=== PATIENT | male | born 1985 | race Caucasian/White ===

== ENCOUNTER 2018-07-23 17:59 | Inpatient (IN) | payer OTHER ==
[~2018-07-23] VITALS: Ht 167.6 cm; Wt 51.6 kg
[2018-07-23] MEDS ORDERED: LORazepam 2 MG/ML, 1ML IVPush ONE (18:30)
[2018-07-23] MEDS ORDERED: SODIUM CHLORIDE FLUSH 10ML SYR IVF ONE (18:30)
[2018-07-23] MEDS ORDERED: SODIUM CHLORIDE 0.9% 1,000ML IVBOLUS ONE (18:30)
--- NOTE | 2018-07-23 19:04 | NUR ---
PATIENT PRESENTS TO ED TODAY FOR ABD PAIN RADIATING TO BACK, DIFFICULTY BREATHING, AND LEFT ARM NUMBNESS STARTING THIS AM. LABS DRAWN, IV STARTED, AWAITING RESULTS. FRIEND/FAMILY AT BEDSIDE, CALL LIGHT WITHIN REACH. NAD NOTED. NO HX.
[2018-07-23 19:12] LABS: ALANINE AMINOTRANSFERASE 79 U/L (12-78); ALBUMIN 4.5 g/dL (3.4-5.0); ANION GAP 12 mmol/L (5-15); CALCIUM 9.9 mg/dL (8.5-10.1); CHLORIDE 103 mmol/L (98-107); CREATININE 1.01 mg/dL (0.7-1.3)
--- NOTE | 2018-07-23 19:13 | NUR ---
VS UPDATED IN CHART, HR 110'S-130'S. MENTAL HEALTH TECHNICIAN ON PATIENT, PATIENT DENIES CP AT THIS TIME.
[2018-07-23 19:15] LABS: ALKALINE PHOSPHATASE 105 U/L (45-117); BASOPHILS # (AUTO) 0.02 x10^3/uL (0-0.1); BASOPHILS % (AUTO) 0 % (0-1); BILIRUBIN,TOTAL 0.7 mg/dL (0.2-1.0); EOSINOPHILS % (AUTO) 0 % (1-7); LYMPHOCYTES # (AUTO) 1.78 x10^3/uL (1-3.4); LYMPHOCYTES % (AUTO) 14 % (22-44); MD NO; MEAN CORPUSCULAR HEMOGLOBIN 33.9 pg (27.5-34.5); MEAN CORPUSCULAR HGB CONC 34.2 g/dL (33.2-36.2); MEAN CORPUSCULAR VOLUME 99.3 fL (81-97); MEAN PLATELET VOLUME 7.9 fL (7.4-10.4); MONOCYTES # (AUTO) 0.58 x10^3/uL (0.2-0.8); MONOCYTES % (AUTO) 5 % (2-9); NEUTROPHILS # (AUTO) 10.59 x10^3/uL (1.8-6.8); NEUTROPHILS % (AUTO) 82 % (42-75); PLATELET COUNT 358 x10^3/uL (130-400); RED BLOOD COUNT 5.61 x10^6/uL (4.38-5.82); TOTAL PROTEIN 8.8 g/dL (6.4-8.2)
[2018-07-23] MEDS ORDERED: LORazepam 2 MG/ML, 1ML ONE (19:16)
--- NOTE | 2018-07-23 19:23 | NUR ---
PATIENT SITTING IN GURNEY, TO BE ADMITTED, FAMILY/PATIENT UPDATED ON POC. NO ADDITIONAL NEEDS AT THIS TIME, NAD NOTED. AWAITING ADMIT ORDER.
--- NOTE | 2018-07-23 20:08 | NUR ---
NEW ORDERS, PATIENT TO US AT THIS TIME VIA LEE CHRISTENSEN. PATIENT REPORTS PAIN, AWARE. Addendum: 07/23/18 at 2009 by SOHAN AWAITING FURTHER ORDERS.
[2018-07-23] MEDS ORDERED: ONDANSETRON ODT 4 MG PO PRN (20:30)
[2018-07-23] MEDS ORDERED: PROMETHAZINE 25 MG/ML, 1ML IM PRN (20:30)
[2018-07-23] MEDS ORDERED: HYDROmorphone 2 MG/ML, 1ML IVPush PRN (20:30)
[2018-07-23] MEDS ORDERED: BISACODYL 10 MG SUPP PR PRN (20:30)
[2018-07-23] MEDS ORDERED: POLYETHYLENE GLYCOL 17 GM PACKET PO PRN (20:30)
[2018-07-23] MEDS ORDERED: SODIUM CHLORIDE FLUSH 10ML SYR IVF PRN (20:30)
[2018-07-23] MEDS ORDERED: DOCUSATE 100 MG CAPSULE PO PRN (20:30)
[2018-07-23] MEDS ORDERED: HYDROmorphone 2 MG/ML, 1ML ONE (20:41)
--- NOTE | 2018-07-23 20:42 | NUR ---
[facility] AT BEDSIDE.
--- NOTE | 2018-07-23 20:49 | NUR ---
PAIN MEDICATIONS ADMINISTERED PER MD ORDER, AWAITING REPORT TO RN UPSTAIRS. PATIENT SITTING IN BRIDGETTE CHRISTENSEN. VS UPDATED IN CHART.
--- NOTE | 2018-07-23 20:54 | NUR ---
REPORT TO JUANCHO MCDANIEL.
--- NOTE | 2018-07-23 20:57 | NUR ---
REPORT TO JUANCHO BILL.
[2018-07-23] MEDS ORDERED: LORazepam 0.5MG TABLET PO PRN (21:00)
[2018-07-23] MEDS ORDERED: LORazepam 1MG TABLET PO PRN ×4 (21:00)
[2018-07-23] MEDS ORDERED: LORazepam 2 MG/ML, 1ML IV PRN ×5 (21:00)
[2018-07-23 21:15] LABS: FREE T4 (FREE THYROXINE) 1.16 ng/dL (0.76-1.46); THYROID STIMULATING HORMONE 3.79 mIU/L (0.358-3.740)
[2018-07-23 21:20] VITALS: BP 169/99
[2018-07-23 21:20] LABS: HEMOGLOBIN A1C 5.5 % (4.2-6.3)
[2018-07-23] MEDS: morphine SULFATE 10 MG/ML, 1ML IVPush PRN ×2 (23:20→23:39)
[2018-07-23] MEDS: LACTATED RINGERS 1,000 ML IV SCH (23:28)
[2018-07-23] MEDS: NICOTINE 7 MG/24 HR PATCH.TD24 TD SCH (23:28)
[2018-07-23] MEDS: HEPARIN 5,000 UNITS/ML, 1ML SQ SCH (23:29)
[2018-07-24] VITALS (8 sets, daily range): BP systolic 147–174; BP diastolic 87–111
[2018-07-24] MEDS: morphine SULFATE 10 MG/ML, 1ML IVPush PRN ×5 (02:43→21:42)
[2018-07-24] MEDS: hydrALAzine 20 MG/ML, 1ML IVPush PRN ×2 (03:25→08:54)
[2018-07-24] MEDS: LACTATED RINGERS 1,000 ML IV SCH ×4 (05:17→21:43)
[2018-07-24 05:43] LABS: ALANINE AMINOTRANSFERASE 51 U/L (12-78); ALBUMIN 3.5 g/dL (3.4-5.0); ANION GAP 9 mmol/L (5-15); CALCIUM 8.5 mg/dL (8.5-10.1); CHLORIDE 106 mmol/L (98-107); CHOLESTEROL, TOTAL 159 mg/dL (140-239); CREATININE 0.65 mg/dL (0.7-1.3)
[2018-07-24 05:47] LABS: BASOPHILS # (AUTO) 0.04 x10^3/uL (0-0.1); BASOPHILS % (AUTO) 0 % (0-1); EOSINOPHILS % (AUTO) 0 % (1-7); LYMPHOCYTES # (AUTO) 1.21 x10^3/uL (1-3.4); LYMPHOCYTES % (AUTO) 13 % (22-44); MD NO; MEAN CORPUSCULAR VOLUME 99.9 fL (81-97); MEAN PLATELET VOLUME 7.7 fL (7.4-10.4); MONOCYTES # (AUTO) 0.65 x10^3/uL (0.2-0.8); MONOCYTES % (AUTO) 7 % (2-9); NEUTROPHILS # (AUTO) 7.72 x10^3/uL (1.8-6.8); NEUTROPHILS % (AUTO) 80 % (42-75); PLATELET COUNT 276 x10^3/uL (130-400); RED BLOOD COUNT 5.08 x10^6/uL (4.38-5.82); RED CELL DISTRIBUTION WIDTH 12.2 % (9.4-14.8)
[2018-07-24 05:57] LABS: ALKALINE PHOSPHATASE 86 U/L (45-117); BILIRUBIN,TOTAL 1.1 mg/dL (0.2-1.0); HDL CHOL % 50 % (26-37); HDL CHOLESTEROL (DIRECT) 80 mg/dL (40-60); LDL CHOLESTEROL,CALCULATED 35 mg/dL (54-169); LDL/HDL RATIO 0.4 (0.5-3.0); TOTAL PROTEIN 6.9 g/dL (6.4-8.2); TRIGLYCERIDES 218 mg/dL (50-200); VLDL CHOLESTEROL 44 mg/dL (0-25)
[2018-07-24] MEDS: OXYcodone IR 5MG TABLET PO PRN ×2 (08:55→16:12)
[2018-07-24] MEDS: ONDANSETRON 2MG/ML, 2ML IVPush PRN ×2 (08:55→16:11)
[2018-07-24] MEDS: HEPARIN 5,000 UNITS/ML, 1ML SQ SCH ×3 (09:10→23:45)
[2018-07-24] MEDS: NICOTINE 7 MG/24 HR PATCH.TD24 TD SCH (23:30)
[2018-07-25 02:38] VITALS: BP 147/90
[2018-07-25] MEDS: morphine SULFATE 10 MG/ML, 1ML IVPush PRN ×2 (02:50→07:59)
[2018-07-25] MEDS: LACTATED RINGERS 1,000 ML IV SCH (02:51)
[2018-07-25 06:00] LABS: CHLORIDE 100 mmol/L (98-107)
[2018-07-25 06:17] LABS: ALANINE AMINOTRANSFERASE 32 U/L (12-78); ALBUMIN 2.8 g/dL (3.4-5.0); ALKALINE PHOSPHATASE 77 U/L (45-117); ANION GAP 11 mmol/L (5-15); BILIRUBIN,TOTAL 1.8 mg/dL (0.2-1.0); CALCIUM 8.3 mg/dL (8.5-10.1); CREATININE 0.56 mg/dL (0.7-1.3); TOTAL PROTEIN 6.4 g/dL (6.4-8.2)
[2018-07-25 07:13] VITALS: BP 145/87
[2018-07-25] MEDS: ONDANSETRON 2MG/ML, 2ML IVPush PRN (07:59)
[2018-07-25] MEDS: HEPARIN 5,000 UNITS/ML, 1ML SQ SCH ×3 (07:59→23:30)
[2018-07-25] MEDS: SODIUM CHLORIDE 0.9% 1,000 ML IV SCH ×2 (11:06→17:55)
[2018-07-25 15:44] VITALS: BP 135/87
[2018-07-25] MEDS: OXYcodone IR 5MG TABLET PO PRN ×2 (15:50→22:03)
[2018-07-25 18:44] VITALS: BP 132/78
[2018-07-25] MEDS: NICOTINE 7 MG/24 HR PATCH.TD24 TD SCH (23:30)
[2018-07-26 01:29] VITALS: BP 127/80
[2018-07-26] MEDS: SODIUM CHLORIDE 0.9% 1,000 ML IV SCH ×3 (02:00→18:27)
[2018-07-26 07:45] VITALS: BP 127/79
[2018-07-26] MEDS: HEPARIN 5,000 UNITS/ML, 1ML SQ SCH ×2 (08:59→17:41)
[2018-07-26 14:00] VITALS: BP 128/79
[2018-07-26 20:23] VITALS: BP 133/73
[2018-07-26] MEDS ORDERED: TEMAZEPAM 15 MG CAPSULE PO ONE (22:00)
[2018-07-26] MEDS: NICOTINE 7 MG/24 HR PATCH.TD24 TD SCH (23:30)
[2018-07-27] MEDS: HEPARIN 5,000 UNITS/ML, 1ML SQ SCH ×2 (01:00→09:00)
[2018-07-27] MEDS: SODIUM CHLORIDE 0.9% 1,000 ML IV SCH (01:36)
[2018-07-27 03:30] VITALS: BP 137/86
[2018-07-27 05:16] LABS: ALANINE AMINOTRANSFERASE 39 U/L (12-78); ALBUMIN 2.5 g/dL (3.4-5.0); ANION GAP 6 mmol/L (5-15); CHLORIDE 109 mmol/L (98-107)
[2018-07-27 05:19] LABS: ALKALINE PHOSPHATASE 105 U/L (45-117); BILIRUBIN,TOTAL 0.6 mg/dL (0.2-1.0); CREATININE 0.56 mg/dL (0.7-1.3)
[2018-07-27 06:50] VITALS: BP 134/89
[2018-07-27] MEDS ORDERED: POTASSIUM CHLORIDE 20 MEQ TAB.ER.PRT PO ONE (10:00)
[2018-07-27] MEDS ORDERED: DOCU-131 PO (11:39)
== END 2018-07-27 14:47 | disposition home or self-care (01) | DRG 440 ==
LOC: ED 19:00 → EDIP 20:24 → 3NE 21:51 → DCLOUNGE 07-27 14:41
PROVIDERS: ADMIT Internal Medicine; ATTEND Internal Medicine
DX: K85.20 Alcohol induced acute pancreatitis without necrosis or infection (principal); F41.9 Anxiety disorder, unspecified; E86.0 Dehydration; K70.10 Alcoholic hepatitis without ascites; Z82.0 Family history of epilepsy and other diseases of the nervous system; Z87.81 Personal history of (healed) traumatic fracture; Z87.891 Personal history of nicotine dependence; F10.10 Alcohol abuse, uncomplicated; M54.5 Low back pain; Z71.6 Tobacco abuse counseling
CPT/HCPCS: 36415; 76700; 80053; 80061; 83036; 83690; 83735; 84439; 84443; 85025; 93005; 99285; G0378; J1170; J1644; J2405; J0360; J2060; J2270; J7030; J7120